=== PATIENT | female | born 1945 | race Caucasian/White ===

== ENCOUNTER 2019-12-06 13:21 | Outpatient (CLI) | payer MEDICARE ==
--- NOTE | 2019-12-06 13:35 | RAD ---
EXAM: 4 views of the left knee HISTORY: Knee pain COMPARISON: None FINDINGS: No knee effusion is seen. There is no evidence of acute fracture or dislocation. No signifi cant degenerative changes are seen. No soft tissue swelling is present. IMPRESSION: No evidence of acute osseous abnormality.
== END 2019-12-06 13:22 | disposition home or self-care (01) ==
LOC: RAD-FRANK 13:21
PROVIDERS: ATTEND Nurse Practitioner Family
DX: M25.562 Pain in left knee (principal)

== ENCOUNTER 2022-07-09 10:39 | Outpatient (CLI) | payer MEDICARE | END 2022-07-09 10:40 | disposition home or self-care (01) | LOC: RAD-FRANK 10:39 | PROVIDERS: ATTEND Nurse Practitioner Family | DX: M54.50 Low back pain, unspecified (principal); M47.816 Spondylosis without myelopathy or radiculopathy, lumbar region; Z98.890 Other specified postprocedural states | CPT/HCPCS: 72100 ==

== ENCOUNTER 2022-12-17 15:10 | Outpatient (CLI) | payer MEDICARE | END 2022-12-17 15:11 | disposition home or self-care (01) | LOC: RAD-FRANK 15:10 | PROVIDERS: ATTEND Nurse Practitioner Family | DX: M54.9 Dorsalgia, unspecified (principal); M47.816 Spondylosis without myelopathy or radiculopathy, lumbar region; S32.049A Unspecified fracture of fourth lumbar vertebra, initial encounter for closed fracture | CPT/HCPCS: 72100 ==